=== PATIENT | male | born 1985 | race Caucasian/White ===

== ENCOUNTER 2022-10-07 07:31 | Emergency (ER) | payer OTHER, MEDICAID, SELFPAY ==
[2022-10-07] VITALS (8 sets, daily range): BP systolic 134–171; BP diastolic 76–85; PULSE 63–86; RESP 14–21; TEMP 36.7–36.8; O2SAT 95–99; BMI 31.7
--- NOTE | 2022-10-07 07:43 | ED.GENADULT ---
HPI - General Adult General Chief complaint: Shortness of Breath/Dyspnea Stated complaint: diffulity breathing when laying down/aniexty T-3 Time Seen by Provider: 10/07/22 07:36 History of Present Illness HPI narrative: 37-year-old male presenting with shortness of breath. Patient reports several days of intermittent shortness of breath, this is worse when the patient is lying down flat. Patient does have a recent illness approximately 1-2 weeks prior to presentation. Patient also is actively quitting smoking, last smoking was approximately 2-3 weeks prior to presentation. No measured fevers. No productive cough. No chest pain. Patient does report being woken from sleep several times a night with shortness of breath. Patient reports this triggers his anxiety. Related Data Allergies Allergy/AdvReac Type Severity Reaction Status Date / Time No Known Drug Allergies Allergy Verified 10/07/22 07:44 Patient History Social History Smoking Status: Former smoker Exam Narrative Exam Narrative: Vitals reviewed. Nursing note reviewed Constitutional: interactive HENT: Moist mucous membranes EYES: No scleral icterus NECK: no masses CV: Well perfused peripherally, no cyanosis present PULM: Unlabored respirations, symmetric chest rise ABD: Non-distended MS: No gross deformities, no asymmetric edema noted SKIN: Warm and dry. PSYCH: Appropriate affect NEURO: Follows simple commands, moves extremities, interactive with exam Initial Vital Signs Initial Vital Signs: Vital Signs Pulse Rate 80 10/07/22 07:38 Pulse Oximetry 98 10/07/22 07:38 Course Orders Ordered: ED Orders 10/07/22 07:44 CXR [XR chest 1V] Stat 10/07/22 08:00 CBC Auto Diff [Complete Blood Count AUTO DIFF] Stat CMP [Comprehensive Metabolic Panel] Stat Covid-19 + FLU A/B + RSV - PCR Stat D Dimer Stat Trop I [Troponin I] Stat 10/07/22 08:04 EKG-12 Lead Stat Vital Signs Vital signs: Vital Signs - 8 hr 10/07/22 07:44 10/07/22 07:38 10/07/22 08:00 Temperature 98.1 F Pulse Rate 86 80 74 Respiratory Rate 18 21 Blood Pressure 171/81 H Pulse Oximetry 99 98 Oxygen Delivery Method Room Air Medical Decision Making Lab Data 10/07/22 08:00 10/07/22 08:00 Labs: Lab Results 10/07/22 10/07/22 10/07/22 Range/Units 08:00 08:00 08:00 WBC 4.8 (4.5-11.0) X10^3/uL RBC 5.03 (4.5-5.9) X10^6/uL Hgb 15.2 (13.5-17.5) g/dL Hct 44.6 (41-53) % MCV 88.6 (80-100) fL MCH 30.2 (26-34) PG MCHC 34.1 (30-36) % RDW 13.7 (11.6-14.8) % Plt Count 103 L (150-400) X10^3/uL Neut % (Auto) 70.5 (50-75) % Lymph % (Auto) 19.4 L (25-40) % [place] % (Auto) 8.9 (3-14) % Eos % (Auto) 0.6 L (2-4) % Baso % (Auto) 0.6 (0-2) % Neut # (Auto) 3400 (3250-9647) /uL Lymph # (Auto) 900 L (5399-7268) /uL [place] # (Auto) 400 (0-900) /uL Eos # (Auto) 0 (0-450) /uL Baso # (Auto) 0 (0-100) /uL D-Dimer < 215 (<500) ng/ml Sodium 137 (137-145) mmol/L Potassium 4.1 (3.4-5.1) mmol/L Chloride 102 (98-107) mmol/L Carbon Dioxide 23 (22-32) mmol/L BUN 14 (9-20) mg/dL Creatinine 0.75 (0.66-1.25) mg/dL Estimated GFR > 60 (>60) mL/min BUN/Creatinine Ratio 18.7 (6-22) Glucose 132 H (70-100) mg/dL Calcium 8.2 L (8.4-10.2) mg/dL Total Bilirubin 1.2 (0.2-1.3) mg/dL AST 41 (17-59) IU/L ALT 56 H (<50) IU/L Alkaline Phosphatase 79 (38-126) U/L Troponin I 0.013 (0.01-0.034) ng/mL Total Protein 7.8 (6.3-8.2) g/dL Albumin 4.5 (3.5-5.0) g/dL Globulin 3.3 (1.7-4.1) g/dL Albumin/Globulin Ratio 1.4 (1.0-2.8) SARS-CoV-2 (PCR) (Negative) Influenza A (RT-PCR) (NEGATIVE) Influenza B (RT-PCR) (NEGATIVE) RSV (PCR) (Negative) 10/07/22 Range/Units 08:00 WBC (4.5-11.0) X10^3/uL RBC (4.5-5.9) X10^6/uL Hgb (13.5-17.5) g/dL Hct (41-53) % MCV (80-100) fL MCH (26-34) PG MCHC (30-36) % RDW (11.6-14.8) % Plt Count (150-400) X10^3/uL Neut % (Auto) (50-75) % Lymph % (Auto) (25-40) % [place] % (Auto) (3-14) % Eos % (Auto) (2-4) % Baso % (Auto) (0-2) % Neut # (Auto) (7576-1372) /uL Lymph # (Auto) (1015-7995) /uL [place] # (Auto) (0-900) /uL Eos # (Auto) (0-450) /uL Baso # (Auto) (0-100) /uL D-Dimer (<500) ng/ml Sodium (137-145) mmol/L Potassium (3.4-5.1) mmol/L Chloride (98-107) mmol/L Carbon Dioxide (22-32) mmol/L BUN (9-20) mg/dL Creatinine (0.66-1.25) mg/dL Estimated GFR (>60) mL/min BUN/Creatinine Ratio (6-22) Glucose (70-100) mg/dL Calcium (8.4-10.2) mg/dL Total Bilirubin (0.2-1.3) mg/dL AST (17-59) IU/L ALT (<50) IU/L Alkaline Phosphatase (38-126) U/L Troponin I (0.01-0.034) ng/mL Total Protein (6.3-8.2) g/dL Albumin (3.5-5.0) g/dL Globulin (1.7-4.1) g/dL Albumin/Globulin Ratio (1.0-2.8) SARS-CoV-2 (PCR) Positive H (Negative) Influenza A (RT-PCR) Flu a negative (NEGATIVE) Influenza B (RT-PCR) Flu b negative (NEGATIVE) RSV (PCR) Negative (Negative) MDM Narrative Medical decision making narrative: 37-year-old male presenting with shortness of breath in the setting of recent viral type symptoms starting last week. On presentation, vital signs notable for no hypoxemia or tachycardia. Physical exam on presentation notable for overall well-appearing 37-year-old male who is in no acute distress, reassuring cardiopulmonary and abdominal exam. Initial concern for infectious etiology including viral syndrome, coronavirus pandemic infection, focal bacterial infection, occult sepsis, sleep apnea, asthma exacerbation, myocarditis, pulmonary embolism. EKG obtained on presentation without evidence of significant arrhythmia, no evidence of acute ischemia, and no evidence of pericarditis or myocarditis. Given patient's age and lack of cardiac risk factors, ACS seems unlikely. Broad screening labs were obtained. Chest x-ray without evidence of acute pathology. Labs notable for reassuring CBC and CMP as above. Viral swab notable for positive coronavirus. Discussed findings with patient at bedside. Patient continues to maintain oxygen saturations and is able to ambulate without hypoxemia. Discussed plan for conservative outpatient management and follow up. Discharge Plan Departure Patient Disposition: Home Clinical Impression: COVID-19 Instructions: COVID-19 Referrals: Miscellaneous,MD Marilu [Primary Care Provider] - Stand Alone Forms: Patient Portal/API
--- NOTE | 2022-10-07 07:44 | DI.RAD.S_ITS ---
PROCEDURE: XR CHEST 1V INDICATIONS: sob TECHNIQUE: One view of the chest was acquired. COMPARISON: None. FINDINGS: Surgical changes and devices: None. Lungs and pleura: Lungs are clear. No pleural effusions or pneumothorax. Mediastinum: Mediastinal contours appear normal. Heart size is normal. Bones and chest wall: No suspicious bony lesions. Overlying soft tissues appear unremarkable. IMPRESSION: No acute cardiopulmonary abnormality. Dictated by: Herminia Dillard M.D. on 10/07/2022 at 8:09 Approved by: Herminia Dillard M.D. on 10/07/2022 at 8:09
[2022-10-07 08:14] LABS: Add Manual Diff / Slide Review NO; Basophils Absolute Auto 0 /uL (0-100); Basophils Percent Auto 0.6 % (0-2); Eosinophils Absolute Auto 0 /uL (0-450); Eosinophils Percent Auto 0.6 % (2-4); Hematocrit 44.6 % (41-53); Hemoglobin 15.2 g/dL (13.5-17.5); Lymphocytes Absolute Auto 900 /uL (1100-4500); Lymphocytes Percent Auto 19.4 % (25-40); Mean Corpuscular HGB Conc 34.1 % (30-36); Mean Corpuscular Hemoglobin 30.2 PG (26-34); Mean Corpuscular Volume 88.6 fL (80-100); Monocytes Absolute Auto 400 /uL (0-900); Monocytes Percent Auto 8.9 % (3-14); Neutrophils Absolute Auto 3400 /uL (1500-7000); Neutrophils Percent Auto 70.5 % (50-75); Platelet Count 103 X10^3/uL (150-400); Red Blood Cell Count 5.03 X10^6/uL (4.5-5.9); Red Cell Distribution Width 13.7 % (11.6-14.8); White Blood Cell Count 4.8 X10^3/uL (4.5-11.0)
[2022-10-07 08:22] LABS: Alanine Aminotransferase 56 IU/L (<50); Albumin 4.5 g/dL (3.5-5.0); Albumin Globulin Ratio 1.4 (1.0-2.8); Alkaline Phosphatase 79 U/L (38-126); Aspartate Aminotransferase 41 IU/L (17-59); BUN Creatinine Ratio 18.7 (6-22); Bilirubin Total 1.2 mg/dL (0.2-1.3); Blood Urea Nitrogen 14 mg/dL (9-20); Calcium 8.2 mg/dL (8.4-10.2); Carbon Dioxide 23 mmol/L (22-32); Chloride 102 mmol/L (98-107); Estimated Glomerular Filt Rate > 60 mL/min (>60); Globulin 3.3 g/dL (1.7-4.1); Glucose 132 mg/dL (70-100); Sodium 137 mmol/L (137-145); Total Protein 7.8 g/dL (6.3-8.2)
[2022-10-07 08:23] LABS: D Dimer < 215 ng/ml (<500)
[2022-10-07 08:42] LABS: Potassium 4.1 mmol/L (3.4-5.1)
[2022-10-07 08:46] LABS: Troponin I 0.013 ng/mL (0.01-0.034)
[2022-10-07 08:47] LABS: HEMOLYSIS 110 (0-50)
[2022-10-07 08:49] LABS: Influenza A - CEPHEID Flu A NEGATIVE (NEGATIVE); Influenza B - CEPHEID Flu B NEGATIVE (NEGATIVE); Respiratory Syncytial Virus Negative (Negative)
[2022-10-07 08:50] LABS: COVID-19 CEPHEID 4-PLEX PCR POSITIVE (Negative)
== END 2022-10-07 09:20 | disposition home or self-care (01) ==
PROVIDERS: Emergency Provider Emergency Medicine
DX: U07.1 COVID-19 (principal); R07.9 Chest pain, unspecified
CPT/HCPCS: 0241U; 71045; 80053; 84484; 85025; 85379; 93005; 93010; 99282; 99284

== ENCOUNTER 2023-01-16 16:17 | Emergency (ER) | payer OTHER, MEDICAID, SELFPAY ==
[2023-01-16 17:07] VITALS: BP 180/113; PULSE 106; RESP 16; TEMP 36.8; O2SAT 95; BMI 33.4
[2023-01-16] MEDS: ACETAMINOPHEN 325 MG TABLET 975 MG PO (17:14)
[2023-01-16] MEDS: IBUPROFEN 400 MG TABLET 800 MG PO (17:15)
== END 2023-01-16 17:45 | disposition left against medical advice (07) ==
PROVIDERS: Emergency Provider Emergency Medicine
DX: M54.9 Dorsalgia, unspecified (principal)
CPT/HCPCS: 99283

== ENCOUNTER 2023-01-16 20:25 | Emergency (ER) | payer OTHER, MEDICAID, SELFPAY ==
[2023-01-16 20:36] VITALS: BP 138/76; PULSE 78; RESP 18; TEMP 36.9; O2SAT 98; BMI 33.4
--- NOTE | 2023-01-17 01:02 | ED.BACK ---
HPI - Back Pain/Injury General Chief Complaint: Back Pain/Injury Stated Complaint: Back pain Time Seen by Provider: 01/17/23 00:35 Source: patient History of Present Illness HPI Narrative: Patient is day healthy 37-year-old male history of compression fracture presents today with thoracic back pain. He reports it has been ongoing for the last 4 days it started while he is kind a crack his mom's back. He sudden instant pain midline. Has been ongoing. He denies any numbness tingling or weakness. No changes in bowel or bladder habits. He has been taking Advil without significant relief. It hurts to move. Related Data Previous Rx's Medication Instructions Recorded hydrocodone 5 mg-acetaminophen 325 1 tab PO Q6H PRN pain #10 tabs 01/17/23 mg tablet methocarbamol 750 mg tablet 750 mg PO Q8H PRN muscle spasm #14 01/17/23 tabs Allergies Allergy/AdvReac Type Severity Reaction Status Date / Time No Known Drug Allergies Allergy Verified 01/16/23 20:42 Review of Systems Review of Systems ROS Unobtainable: All systems reviewed & are unremarkable except as noted in HPI and below Patient History Social History Smoking Status: Former smoker Smoking Status: Former smoker Substance Use Type: marijuana Exam Initial Vital Signs Initial Vital Signs: Vital Signs Temperature 98.5 F 01/16/23 20:36 Pulse Rate 78 01/16/23 20:36 Respiratory Rate 18 01/16/23 20:36 Blood Pressure 138/76 01/16/23 20:36 Pulse Oximetry 98 01/16/23 20:36 Oxygen Delivery Method Room Air 01/16/23 20:36 GENERAL: Alert pleasant well-appearing 37-year-old male called up on side CARDIOVASCULAR: peripheral pulses in tact, cap refill <2 sec RESPIRATORY: No respiratory distress, speaks in full sentences without difficulty BACK: Midline pain around T11-T12 and lumbar junction. No paraspinal muscle tenderness no spasm appreciated pain is reproducible palpation EXTREMITIES: Normal range of motion, no clubbing or edema. Neurovascularly intact NEUROLOGICAL: Cranial nerves II through XII grossly intact. Normal gait and speech. SKIN: Warm, dry, no petechiae, no rashes or lesions. Course Orders Ordered: ED Orders 01/17/23 01:09 XR thoracic spine 3V Stat Discontinued Medications Hydrocodone Bitart/Acetaminophen (Hydrocodone/Acet 5/325 Prepack) 1 bottle MISC SEEINSTR ONE Stop: 01/17/23 01:10 Last Admin: 01/17/23 02:15 Dose: 1 bottle Documented By: SINCERE Vital Signs Vital signs: Vital Signs - 8 hr 01/17/23 02:15 Pulse Rate 78 Respiratory Rate 16 Pulse Oximetry 98 Oxygen Delivery Method Room Air MDM - Back Pain/Injury Imaging Data Extremity x-ray #1: Radiologist's Impression: PROCEDURE:? XR THORACIC SPINE 3V ? INDICATIONS:? T11/12 pain ? TECHNIQUE:? 3 views of the thoracic spine were acquired.? ? COMPARISON:? [facility], MR, L-SPINE WITHOUT CONTRAST, 09/28/2014, 16:39.? [facility] [place], CR, SPINE THORACOLUMBAR 2VW, 10/27/2014, 10:58.? [facility] [place], CR, SPINE THORACOLUMBAR 2VW, 11/28/2014, 11:10. ? FINDINGS:? ? Bones:? Several levels of anterior wedge deformity can be seen, including involving the T5, T6, T9, T10, and T11 levels.? No brie acute features are seen.? Remote T12 and L1 anterior wedge deformities are seen, which are stable compared to 2015. ? No suspicious bony lesions.? 12 pairs of ribs are noted, and appear intact where visualized.? ? Soft tissues:? No paravertebral stripe thickening.? ? ? IMPRESSION:? Several levels of mild anterior wedge deformity can be seen, without brie, acute features. ? If it would be helpful for clinical management decision making in this patient with this given history, please consider a dedicated thoracic spine CT for further evaluation.? ? Dictated by: Fadi García M.D. on 01/17/2023 at 0:28 ? ? [facility] Narrative Medical decision making narrative: Patient is a 37-year-old male with prior back injury presenting today with mid line tenderness after another back injury. He is no focal deficits no changes in bowel or bladder habits no concern for cauda equina at this time. X-ray shows old wedge fractures but not acute fractures. Possible ligamentous tear or partial tear. He is quite pinpoint midline. He has been taking NSAIDs at home without relief. Increase Cymbalta give him Willards and follow-up. May require outpatient MRI but does not need an emergent MRI today. Discharge Plan Departure Patient Disposition: Home Clinical Impression: Back pain Instructions: DI for Back Strain or Sprain Activity Restrictions/Additional Instructions: *You have been diagnosed with back pain *What to do: At this time increase activity as tolerated, no heavy lifting no strenuous activity recommend some light activity. *Continue to take medications as directed --> SENT TO [facility] Motrin/ibuprofen 600 mg every 6 hours if needed for yble-ef-msrgdzqd pain Willards 1 tablet every 6 hours if needed for severe pain Methocarbamol 750 mg every 8 hours if needed for muscle spasm this can cause dizziness and sleepiness *Follow up with your primary care provider in 2-3 days or call [phone] *Return to ER if you should have increasing weakness in legs changes in bowel or bladder or any new, worsening or concerning symptoms CONTROLLED SUBSTANCE DISCHARGE (Narcotoic/benzodiazepine/Flexeril/Phenergan) 1. You have been prescribed narcotic medications, it does have acetaminophen/Tylenol/paracetamol in it, DO NOT TAKE MORE THAN 4,00mg in 24 hours of Tylenol. TRAMADOL DOES NOT CONTAIN TYLENOL 2. Please understand that we cannot provide further refills of narcotics, benzodiazepines or controlled substances through the ED and her pain management will need to be through your provider. 3. While on these medications you cannot drive or operate heavy machinery. 4. You cannot sign legal documents or perform any duties such as this. 5. As long as you're taking opiate pain medications he should also be taking a stool softener such as Colace, Dulcolax, MiraLAX or prune juice, to help avoid constipation. Prescriptions: New hydrocodone-acetaminophen 5-325 mg tablet 1 tab PO Q6H PRN (Reason: pain) Qty: 10 0RF methocarbamol 750 mg tablet 750 mg PO Q8H PRN (Reason: muscle spasm) Qty: 14 0RF Referrals: Miscellaneous,Doctor, [Primary Care Provider] - Stand Alone Forms: Patient Portal/API
--- NOTE | 2023-01-17 01:09 | DI.RAD.S_ITS ---
PROCEDURE: XR THORACIC SPINE 3V INDICATIONS: T11/12 pain TECHNIQUE: 3 views of the thoracic spine were acquired. COMPARISON: [facility], MR, L-SPINE WITHOUT CONTRAST, 09/28/2014, 16:39. [facility] [place], CR, SPINE THORACOLUMBAR 2VW, 10/27/2014, 10:58. [facility] [place], CR, SPINE THORACOLUMBAR 2VW, 11/28/2014, 11:10. FINDINGS: Bones: Several levels of anterior wedge deformity can be seen, including involving the T5, T6, T9, T10, and T11 levels. No brie acute features are seen. Remote T12 and L1 anterior wedge deformities are seen, which are stable compared to 2015. No suspicious bony lesions. 12 pairs of ribs are noted, and appear intact where visualized. Soft tissues: No paravertebral stripe thickening. IMPRESSION: Several levels of mild anterior wedge deformity can be seen, without brie, acute features. If it would be helpful for clinical management decision making in this patient with this given history, please consider a dedicated thoracic spine CT for further evaluation. Dictated by: Fadi García M.D. on 01/17/2023 at 0:28 Approved by: Fadi García M.D. on 01/17/2023 at 0:32
[2023-01-17 02:15] VITALS: PULSE 78; RESP 16; O2SAT 98
[2023-01-17] MEDS: HYDROCODONE/ACET 5/325 PREPACK 1 BOTTLE MISC (02:15)
== END 2023-01-17 02:16 | disposition home or self-care (01) ==
PROVIDERS: Emergency Provider Emergency Medicine
DX: M54.6 Pain in thoracic spine (principal); M54.9 Dorsalgia, unspecified
CPT/HCPCS: 72072; 99281; 99283

== ENCOUNTER 2023-05-13 11:30 | Outpatient (RCR) | payer OTHER, MEDICAID, SELFPAY ==
--- NOTE | 2023-03-18 18:31 | PT.OIE ---
Addendum entered and electronically signed by Mercedes Borges PT 03/19/23 08:11: PT direct supervision and direction to PT student. Original Note: Current Diagnoses Collapsed vertebra, not elsewhere classified, site unspecified, initial encounter for fracture (03/18/23) Cervicalgia (03/18/23) Low back pain, unspecified (03/18/23) Pain in thoracic spine (03/18/23) Difficulty in walking, not elsewhere classified (03/18/23) Abnormal posture (03/18/23) Weakness (03/18/23) Past Medical History (Last Updated 02/12/23 @ 22:07 by Jemma Lucia) Allergies Anxiety Asthma Chicken pox Chronic back pain Depression Fracture Headache Shoulder pain Sleep apnea Past Surgical History (Last Updated 02/12/23 @ 22:07 by Jemma Lucia) History of tonsillectomy Visit Care Team Role Provider Type Kenia Jiang DO Attending Provider Physician Family Provider Primary Care Provider Referring Provider Specialty: Medical Address: [address] [place] [address], [facility] [address], [place], [facility] Email: [email or web address] Physical Therapy Initial Evaluation PT-OP-A Visit Information Start: 03/12/23 18:04 Freq: Status: Active Protocol: Document 03/18/23 10:38 (Rec: 03/18/23 13:34 [id number]) Out-Patient Physical Therapy Visit Information Visit Information Visit Type Initial Evaluation Visit Start Time 10:45 Visit Stop Time 11:32 Total Visit Minutes 47 Visit Number 1 Number of PERSONAL INJURY LITIGATION PARALEGAL Visits 0 PT-OP-B Current Condition Start: 03/12/23 18:04 Freq: Status: Active Protocol: Document 03/18/23 10:38 (Rec: 03/18/23 13:34 [id number]) Current Condition History of Current Condition History of Current Condition He broke his back about 10 yrs ago, slipped getting out of shower that resulted in a compression fx. He had back problems prior to the accident . He would try to work out when he felt better over the year but would then hurt himself. Then repeat the cycle over the years. So he gave up for a few years and did nothing. He got depressed trying to get moving again and has been in a hole of depression. About a month a go or so he thinks he may have slipped a disk, He is not really sure. It knocked the wind out him and he had 2 weeks of excruciating pain. He couldnt sleep, it was unbearable. He was trying to lift his mom to crack her back and in that motion he hurt his own back. 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 Following lifiting his mom he went to the hospital where he was given vicadin at the ER and some Ibproufen. He has been taking it off and on. He has been trying to get out and walk about 10-15min a day . He does have posture issues and some neck pain. When he tries to mow the lawn he lasts about 30 min and then has to wait another day to do the other side. He gets an ache in LB after dishes and mowing lawn, it feels like hes being poked. It takes about 10-15min for it to go away. He has been sleeping in a recliner w/ pillow support or a couch until recently. He has been recently sleeping in a bed and that has been much better. He does get discomoft when he turns or twists to change positions; the motion causes a zap when sleeping in his LB . HE wants to get moving and wants to start feeling better. Treatment Goals Patient/Caregiver Goals nephews is playing football and wants to be able to play w / him (11 yrs). 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 mow the entire lawn. get healthy and stay healthy. PT-OP-C Subjective Start: 03/12/23 18:04 Freq: Status: Active Protocol: Document 03/18/23 10:38 (Rec: 03/18/23 17:59 [id number]) Patient Questionnaires Oswestry Low Back Index Oswestry Score 38% PT-OP-G Mobility & Gait Start: 03/12/23 18:04 Freq: Status: Active Protocol: Document 03/18/23 10:38 (Rec: 03/18/23 18:29 [id number]) OP Gait Assessment Comments Gait Comments dec toe off bilaterally. inc eversion bilatearlly when stepping. lateral trunk lean w / wt bearing bilaterally. compensated trendelenberg. no rotation of pelvis. hard Heel strike. PT-OP-J Posture/Palpation/Skin Start: 03/12/23 18:04 Freq: Status: Active Protocol: Document 03/18/23 10:38 (Rec: 03/18/23 13:34 [id number]) Posture Evaluation [facility] Postural Classification System Lumbar Protective Mechanism Left AP 1 Lumbar Protective Mechanism Right AP 2 Lumbar Protective Mechanism Left PA 1 Lumbar Protective Mechanism Right PA 2 Comments Posture Comments stiff. flat thoracic, kyphotic cervical, L shoulder is more elevated and anterior rotated than R. L pelvis sits higher than R, L trochanter sits slightly higher than R. PT-OP-K Range of Motion Start: 03/12/23 18:04 Freq: Status: Active Protocol: Document 03/18/23 10:38 (Rec: 03/18/23 13:34 [id number]) Cervical Spine Range of Motion Cervical Spine Active Testing Position Sitting ROM Limitations Pain Comments pain W/ all planes of movement and limitation w/ all. Lumbar Spine Range of Motion Lumbar Spine Active Testing Position Sitting ROM Limitations Pain Comments 25% rotation bilaterally. 25% L & R sidebend. when pelvis stablized 5% flexion . ext 5%. pain w/ all movements in LB region. PT-OP-M Strength Start: 03/12/23 18:04 Freq: Status: Active Protocol: Document 03/18/23 10:38 (Rec: 03/18/23 13:34 [id number]) Hip Strength Hip Manual Muscle Testing Left Flexion (L2) 4- Good- Extension (S1) 3 Fair Abduction 3+ Fair+ External Rotation 4- Good- Internal Rotation 3+ Fair+ Comments Int done in neutral, discomfort w/ pressure. Right Flexion (L2) 4- Good- Extension (S1) 3 Fair Abduction 3+ Fair+ External Rotation 4+ Good+ Internal Rotation 4- Good- Comments Int done in neutral, discomfort w/ pressure. Knee Strength Knee Manual Muscle Testing Left Flexion (S2) 4- Good- Extension (L3) 4- Good- Right Flexion (S2) 4- Good- Extension (L3) 4 Good Ankle/Foot Strength Ankle and Foot Manual Muscle Testing Left Dorsiflexion (L4) 5 Normal Right Dorsiflexion (L4) 5 Normal PT-OP-T Assessment and Plan Start: 03/12/23 18:04 Freq: Status: Active Protocol: Document 03/18/23 10:38 (Rec: 03/18/23 13:34 [id number]) Physical Therapy Assessment Rehab Potential Rehabilitation Potential Good Evaluation Complexity Number of Personal Factors/Comorbidities 3 or More Number of Body Systems Impaired 4 or More Clinical Presentation at Evaluation Evolving Impairments Impairments Activity Tolerance,Balance, Coordination,Functional Activities,Functional Mobility ,Gait,Pain,Posture,ROM,Soft Tissue Mobility,Strength Goals Movement Short Term Goal (STG) be able to go on his 15min walk w/ no decreased pain greater than 2/10 STG Duration 05/10/23 Wood Technologist Goal (LTG) be able to play w/ his nephew w/out inc pain greater than 2/ 10 LTG Duration 06/10/23 strength Short Term Goal (STG) increase all MMT by one full grade to show improved strength in LEs. STG Duration 05/10/23 Shelter Goal (LTG) be able to lift 10# w/ proper mechanics and pain no greater than 2/10 so that pt can complete functional tasks w/ ease. LTG Duration 06/10/23 ROM Impairment thoracolumbar roation 25% bilaterally Short Term Goal (STG) increase thoracolumbar rotation to at least 50%(45deg ) bilaterally for improved functional ability Shelter Goal (LTG) Be able to turn his head bilaterally w/ pain no greater than 2/10 so that he can interact w/ his environment w/ ease such as driving. LTG Duration 06/10/23 Assessment Summary Assessment pt presents w/ persistant LB, thoracic and neck pain w/ history of major fractures 10 years ago. pt overall is uncomfortable with all movements. He is motivated to get moving more so that he can interact w/ his family more and play w/ his nephew. He also wants to be able to go throughout his day w/out constant discomfort. He does have weakness in his LEs bilaterally, his L being weaker than his R for all MMT. Internal hip rotation MMT was done in the neutral position bilaterally, active testing position caused pain bilaterlly. His ROM of his trunk is limited in all planes of movement, w/ increased discomfort on his L side in all planes movement. Pt would benefit from physical therapy to improve his strength so that he can move throughout his day with ease and continue to improve upon his quality of life. Physical Therapy Plan Frequency and Duration Frequency of Treatment 2x/Week Duration of treatment (weeks) 12 Plan of Care Start Date 03/18/23 Plan of Care End Date 06/10/23 Therapeutic Interventions Therapeutic Interventions Balance Training,Coordination Training,Gait Training,Home Exercise Program,Joint Mobilizations,Manual Therapy, Neuromuscular Re-education, Patient/Caregiver Education, Self-Care/Home Management,Soft Tissue Mobilization,Taping, Therapeutic Activities, Therapeutic Exercises Modalities Biofeedback,Cold Pack/Ice Massage,Electric Stimulation, Hot Packs,Infrared Therapy, Ultrasound Next Visit Focus/Plan Next Note Type Treatment Note Next Visit Plan HEP: challenge balance and core strength. SLS, balance board. sit to stand mechanics. wall postures. seated SNAGS for neck rotation. bridges, clamshells, abductors. Lateral side steps. manual: pelvis, hip mobilizations
--- NOTE | 2023-03-18 18:31 | PT.OPPOC ---
Physical, Occupational & Speech Therapy At [facility] Current Diagnoses Collapsed vertebra, not elsewhere classified, site unspecified, initial encounter for fracture (03/18/23) Cervicalgia (03/18/23) Low back pain, unspecified (03/18/23) Pain in thoracic spine (03/18/23) Difficulty in walking, not elsewhere classified (03/18/23) Abnormal posture (03/18/23) Weakness (03/18/23) Visit Care Team Role Provider Type Kenia Jiang DO Attending Provider Physician Family Provider Primary Care Provider Referring Provider Specialty: Medical Address: [address] [place] [address], [address], [place], [address] Email: [email or web address] Plan Of Care PT-OP-T Assessment and Plan Start: 03/12/23 18:04 Freq: Status: Active Protocol: Document 03/18/23 10:38 (Rec: 03/18/23 13:34 [id number]) Physical Therapy Assessment Rehab Potential Rehabilitation Potential Good Evaluation Complexity Number of Personal Factors/Comorbidities 3 or More Number of Body Systems Impaired 4 or More Clinical Presentation at Evaluation Evolving Impairments Impairments Activity Tolerance,Balance, Coordination,Functional Activities,Functional Mobility ,Gait,Pain,Posture,ROM,Soft Tissue Mobility,Strength Goals Movement Short Term Goal (STG) be able to go on his 15min walk w/ no decreased pain greater than 2/10 STG Duration 05/10/23 [facility] Goal (LTG) be able to play w/ his nephew w/out inc pain greater than 2/ 10 LTG Duration 06/10/23 strength Short Term Goal (STG) increase all MMT by one full grade to show improved strength in LEs. STG Duration 05/10/23 [facility] Goal (LTG) be able to lift 10# w/ proper mechanics and pain no greater than 2/10 so that pt can complete functional tasks w/ ease. LTG Duration 06/10/23 ROM Impairment thoracolumbar roation 25% bilaterally Short Term Goal (STG) increase thoracolumbar rotation to at least 50%(45deg ) bilaterally for improved functional ability [facility] Goal (LTG) Be able to turn his head bilaterally w/ pain no greater than 2/10 so that he can interact w/ his environment w/ ease such as driving. LTG Duration 06/10/23 Assessment Summary Assessment pt presents w/ persistant LB, thoracic and neck pain w/ history of major fractures 10 years ago. pt overall is uncomfortable with all movements. He is motivated to get moving more so that he can interact w/ his family more and play w/ his nephew. He also wants to be able to go throughout his day w/out constant discomfort. He does have weakness in his LEs bilaterally, his L being weaker than his R for all MMT. Internal hip rotation MMT was done in the neutral position bilaterally, active testing position caused pain bilaterlly. His ROM of his trunk is limited in all planes of movement, w/ increased discomfort on his L side in all planes movement. Pt would benefit from physical therapy to improve his strength so that he can move throughout his day with ease and continue to improve upon his quality of life. Physical Therapy Plan Frequency and Duration Frequency of Treatment 2x/Week Duration of treatment (weeks) 12 Plan of Care Start Date 03/18/23 Plan of Care End Date 06/10/23 Therapeutic Interventions Therapeutic Interventions Balance Training,Coordination Training,Gait Training,Home Exercise Program,Joint Mobilizations,Manual Therapy, Neuromuscular Re-education, Patient/Caregiver Education, Self-Care/Home Management,Soft Tissue Mobilization,Taping, Therapeutic Activities, Therapeutic Exercises Modalities Biofeedback,Cold Pack/Ice Massage,Electric Stimulation, Hot Packs,Infrared Therapy, Ultrasound Next Visit Focus/Plan Next Note Type Treatment Note Next Visit Plan HEP: challenge balance and core strength. SLS, balance board. sit to stand mechanics. wall postures. seated SNAGS for neck rotation. bridges, clamshells, abductors. Lateral side steps. manual: pelvis, hip mobilizations Plan of Care Dates Plan of Care Start Date 03/18/23 Plan of Care End Date 06/10/23 Electronically Signed by: Mercedes Borges, PT 03/18/23 0632 If you are in agreement with this Plan of Care, please return a signed and dated copy. I have reviewed this Plan of Care and certify that the skilled therapy services above are required to meet the patient?s needs. Physician Signature Date Printed Name and Credentials Clinical Instructor Signature Printed Name and Credentials
--- NOTE | 2023-03-27 11:34 | PT.OTN ---
Current Diagnoses Collapsed vertebra, not elsewhere classified, site unspecified, initial encounter for fracture (03/27/23) Cervicalgia (03/27/23) Low back pain, unspecified (03/27/23) Pain in thoracic spine (03/27/23) Difficulty in walking, not elsewhere classified (03/27/23) Abnormal posture (03/27/23) Weakness (03/27/23) Physical Therapy Treatment Note PT-OP-A Visit Information Start: 03/12/23 18:04 Freq: Status: Active Protocol: Document 03/27/23 10:27 NBM (Rec: 03/27/23 11:34 NBM [id number]) Out-Patient Physical Therapy Visit Information Visit Information Visit Type Initial Evaluation Visit Start Time 10:30 Visit Stop Time 11:15 Total Visit Minutes 40 Visit Number 2 Number of BOW STRING MAKER Visits 1 PT-OP-B Current Condition Start: 03/12/23 18:04 Freq: Status: Active Protocol: Document 03/18/23 10:38 (Rec: 03/18/23 13:34 [id number]) Current Condition History of Current Condition History of Current Condition He broke his back about 10 yrs ago, slipped getting out of shower that resulted in a compression fx. He had back problems prior to the accident . He would try to work out when he felt better over the year but would then hurt himself. Then repeat the cycle over the years. So he gave up for a few years and did nothing. He got depressed trying to get moving again and has been in a hole of depression. About a month a go or so he thinks he may have slipped a disk, He is not really sure. It knocked the wind out him and he had 2 weeks of excruciating pain. He couldnt sleep, it was unbearable. He was trying to lift his mom to crack her back and in that motion he hurt his own back. 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 Following lifiting his mom he went to the hospital where he was given vicadin at the ER and some Ibproufen. He has been taking it off and on. He has been trying to get out and walk about 10-15min a day . He does have posture issues and some neck pain. When he tries to mow the lawn he lasts about 30 min and then has to wait another day to do the other side. He gets an ache in LB after dishes and mowing lawn, it feels like hes being poked. It takes about 10-15min for it to go away. He has been sleeping in a recliner w/ pillow support or a couch until recently. He has been recently sleeping in a bed and that has been much better. He does get discomoft when he turns or twists to change positions; the motion causes a zap when sleeping in his LB . HE wants to get moving and wants to start feeling better. Treatment Goals Patient/Caregiver Goals nephews is playing football and wants to be able to play w / him (11 yrs). 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 mow the entire lawn. get healthy and stay healthy. PT-OP-C Subjective Start: 03/12/23 18:04 Freq: Status: Active Protocol: Document 03/27/23 10:27 [facility] (Rec: 03/27/23 11:34 [facility] [id number]) OP-PT Subjective Patient Comments Patient Comments Blas reports he felt fine after last visit and is motivated to play football with 11 yo nephew. He tries to be mindful of posture and stretching, and his back feels better if he walks for about ten minutes. He uses either ice or heat for his back pain. PT-OP-G Mobility & Gait Start: 03/12/23 18:04 Freq: Status: Active Protocol: Document 03/18/23 10:38 (Rec: 03/18/23 18:29 [id number]) OP Gait Assessment Comments Gait Comments dec toe off bilaterally. inc eversion bilatearlly when stepping. lateral trunk lean w / wt bearing bilaterally. compensated trendelenberg. no rotation of pelvis. hard Heel strike. PT-OP-J Posture/Palpation/Skin Start: 03/12/23 18:04 Freq: Status: Active Protocol: Document 03/18/23 10:38 (Rec: 03/18/23 13:34 [id number]) Posture Evaluation Arthur Postural Classification System Lumbar Protective Mechanism Left AP 1 Lumbar Protective Mechanism Right AP 2 Lumbar Protective Mechanism Left PA 1 Lumbar Protective Mechanism Right PA 2 Comments Posture Comments stiff. flat thoracic, kyphotic cervical, L shoulder is more elevated and anterior rotated than R. L pelvis sits higher than R, L trochanter sits slightly higher than R. PT-OP-K Range of Motion Start: 03/12/23 18:04 Freq: Status: Active Protocol: Document 03/18/23 10:38 (Rec: 03/18/23 13:34 [id number]) Cervical Spine Range of Motion Cervical Spine Active Testing Position Sitting ROM Limitations Pain Comments pain W/ all planes of movement and limitation w/ all. Lumbar Spine Range of Motion Lumbar Spine Active Testing Position Sitting ROM Limitations Pain Comments 25% rotation bilaterally. 25% L & R sidebend. when pelvis stablized 5% flexion . ext 5%. pain w/ all movements in LB region. PT-OP-M Strength Start: 03/12/23 18:04 Freq: Status: Active Protocol: Document 03/18/23 10:38 (Rec: 03/18/23 13:34 [id number]) Hip Strength Hip Manual Muscle Testing Left Flexion (L2) 4- Good- Extension (S1) 3 Fair Abduction 3+ Fair+ External Rotation 4- Good- Internal Rotation 3+ Fair+ Comments Int done in neutral, discomfort w/ pressure. Right Flexion (L2) 4- Good- Extension (S1) 3 Fair Abduction 3+ Fair+ External Rotation 4+ Good+ Internal Rotation 4- Good- Comments Int done in neutral, discomfort w/ pressure. Knee Strength Knee Manual Muscle Testing Left Flexion (S2) 4- Good- Extension (L3) 4- Good- Right Flexion (S2) 4- Good- Extension (L3) 4 Good Ankle/Foot Strength Ankle and Foot Manual Muscle Testing Left Dorsiflexion (L4) 5 Normal Right Dorsiflexion (L4) 5 Normal PT-OP-Q Treatments Start: 03/12/23 18:04 Freq: Status: Active Protocol: Document 03/27/23 10:27 NBM (Rec: 03/27/23 11:34 NB [id number]) Therapeutic Exercises Supine Exercises chin tuck Supine Exercise Name next session LTR Supine Exercise Name HEP Side bilateral Equipment Used w/ and w/o 65cm physioball Reps/Minutes x10 Comments vc gentle, pain-free range SNAGS Supine Exercise Name next session Core Supine Exercise Name 1. TrA > TrA w/ PPT>BKFO (HEP) Equipment Used LE bolster, self-monitoring TrA medial to ASIS Reps/Minutes 10 x 2 breathcycles (~5SH) Comments vc for no breathholding, overactivation Sitting Exercises STS Sitting Exercise Name Sit to Stand - next session Standing Exercises Wall posture Equipment Used pillow behind head Reps/Minutes 10 x 5SH Therapeutic Activity Therapeutic Activity Bending mechanics Name next session Self-Care/Home Management Treatment Education Patient Education Body Mechanics,Home Exercise Program,Pain Management, Posture Other Education Pt educated on core anatomy and relationship with diaphragm and importance of not breathholding. Pt instructed on self-monitoring TrA activation medial to ASIS in hooklying. PT-OP-R Modalities Start: 03/12/23 18:04 Freq: Status: Active Protocol: Document 03/27/23 10:27 NBM (Rec: 03/27/23 11:34 [facility] [id number]) Hot Pack/Cold Pack Treatment Cold Pack Location lumbar Patient Position Hooklying Treatment Duration (minutes) 10 Patient Tolerance Good Comments bolster under LEs PT-OP-T Assessment and Plan Start: 03/12/23 18:04 Freq: Status: Active Protocol: Document 03/27/23 10:27 NBM (Rec: 03/27/23 11:34 [facility] [id number]) Physical Therapy Assessment Impairments Impairments Activity Tolerance,Balance, Coordination,Functional Activities,Functional Mobility ,Gait,Pain,Posture,ROM,Soft Tissue Mobility,Strength Goals Movement Short Term Goal (STG) be able to go on his 15min walk w/ no decreased pain greater than 2/10 STG Duration 05/10/23 Glass Silverer Goal (LTG) be able to play w/ his nephew w/out inc pain greater than 2/ 10 LTG Duration 06/10/23 strength Short Term Goal (STG) increase all MMT by one full grade to show improved strength in LEs. STG Duration 05/10/23 [place] Silverer Goal (LTG) be able to lift 10# w/ proper mechanics and pain no greater than 2/10 so that pt can complete functional tasks w/ ease. LTG Duration 06/10/23 ROM Impairment thoracolumbar roation 25% bilaterally Short Term Goal (STG) increase thoracolumbar rotation to at least 50%(45deg ) bilaterally for improved functional ability Glass Silverer Goal (LTG) Be able to turn his head bilaterally w/ pain no greater than 2/10 so that he can interact w/ his environment w/ ease such as driving. LTG Duration 06/10/23 Assessment Summary Assessment Blas is motivated to participate in PT. Treatment focus on core stability and postural and core education. Blas is educated on core anatomy and relationship with diaphragm and importance of not breathholding. He requires cues for breathholding and pain-free ROM, and self- awareness improves by end of session w/ cueing and repetition. No carryover w/ upright posture after walldrill beginning of treatment session as he requires cues for upright posture walking out end of session. He requires cues for chin retraction instead of cervical extension with posture. Pt instructed on self -monitoring TrA activation medial to ASIS in hooklying. Added to HEP: TrA w/BKFO, LTR, DKTC, and wall posture drill - HO given. Physical Therapy Plan Frequency and Duration Frequency of Treatment 2x/Week Duration of treatment (weeks) 12 Plan of Care Start Date 03/18/23 Plan of Care End Date 06/10/23 Therapeutic Interventions Therapeutic Interventions Balance Training,Coordination Training,Gait Training,Home Exercise Program,Joint Mobilizations,Manual Therapy, Neuromuscular Re-education, Patient/Caregiver Education, Self-Care/Home Management,Soft Tissue Mobilization,Taping, Therapeutic Activities, Therapeutic Exercises Modalities Biofeedback,Cold Pack/Ice Massage,Electric Stimulation, Hot Packs,Infrared Therapy, Ultrasound Next Visit Focus/Plan Next Note Type Treatment Note Next Visit Plan HEP: challenge balance and core strength. SLS, balance board. sit to stand mechanics. wall postures. seated SNAGS for neck rotation. bridges, clamshells, abductors. Lateral side steps. manual: pelvis, hip mobilizations
--- NOTE | 2023-04-14 11:38 | PT-OP ANOTE ---
Pt called re: no show and mom answered as pt does not have a phone, but only a texting kalyani. She notes he texted this ride was unable to get him and she tried to call but couldn't get through the line. She asks to reschedule next appt and was transferred to the front elevator operator.
--- NOTE | 2023-04-21 11:55 | PT-OP ANOTE ---
Spoke w/ pt's mom regarding missed appt who advised she had just received a text from him that he was unable to find transportation for his PT appt. Advised that he can text message the front desk representative through the same chat that he confirmed the appointment through. Mom explains they though there was a service for insurance to provide transportation for appts but it doesn't seem to be available any more. She is only off on Wednesdays, except for this week it is , so pt is rescheduled for 12:45p w/ [employer] SUPERVISOR. Pt will reschedule following appts with [facility] for Wednesdays.
--- NOTE | 2023-04-23 12:49 | PT.OTN ---
Current Diagnoses Collapsed vertebra, not elsewhere classified, site unspecified, initial encounter for fracture (04/23/23) Cervicalgia (04/23/23) Low back pain, unspecified (04/23/23) Pain in thoracic spine (04/23/23) Difficulty in walking, not elsewhere classified (04/23/23) Abnormal posture (04/23/23) Weakness (04/23/23) Physical Therapy Treatment Note PT-OP-A Visit Information Start: 03/12/23 18:04 Freq: Status: Active Protocol: Document 04/23/23 12:04 SP (Rec: 04/23/23 13:04 SP [id number]) Out-Patient Physical Therapy Visit Information Visit Information Visit Type Treatment Note Visit Start Time 12:04 Visit Stop Time 12:49 Total Visit Minutes 45 Visit Number 3 Number of AIX SYSTEM ADMINISTRATOR Visits 2 PT-OP-B Current Condition Start: 03/12/23 18:04 Freq: Status: Active Protocol: Document 03/18/23 10:38 (Rec: 03/18/23 13:34 [id number]) Current Condition History of Current Condition History of Current Condition He broke his back about 10 yrs ago, slipped getting out of shower that resulted in a compression fx. He had back problems prior to the accident . He would try to work out when he felt better over the year but would then hurt himself. Then repeat the cycle over the years. So he gave up for a few years and did nothing. He got depressed trying to get moving again and has been in a hole of depression. About a month a go or so he thinks he may have slipped a disk, He is not really sure. It knocked the wind out him and he had 2 weeks of excruciating pain. He couldnt sleep, it was unbearable. He was trying to lift his mom to crack her back and in that motion he hurt his own back. 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 Following lifiting his mom he went to the hospital where he was given vicadin at the ER and some Ibproufen. He has been taking it off and on. He has been trying to get out and walk about 10-15min a day . He does have posture issues and some neck pain. When he tries to mow the lawn he lasts about 30 min and then has to wait another day to do the other side. He gets an ache in LB after dishes and mowing lawn, it feels like hes being poked. It takes about 10-15min for it to go away. He has been sleeping in a recliner w/ pillow support or a couch until recently. He has been recently sleeping in a bed and that has been much better. He does get discomoft when he turns or twists to change positions; the motion causes a zap when sleeping in his LB . HE wants to get moving and wants to start feeling better. Treatment Goals Patient/Caregiver Goals sridevi is playing football and wants to be able to play w / him (13 yrs). 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 mow the entire lawn. get healthy and stay healthy. PT-OP-C Subjective Start: 03/12/23 18:04 Freq: Status: Active Protocol: Document 04/23/23 12:04 SP (Rec: 04/23/23 13:04 SP [id number]) OP-PT Subjective Patient Comments Patient Comments Pt reports tossing football around with LS pain trunk rotating and when wakes up in am worst movements. Compliant with HEP. PT-OP-G Mobility & Gait Start: 03/12/23 18:04 Freq: Status: Active Protocol: Document 03/18/23 10:38 JH (Rec: 03/18/23 18:29 JH [id number]) OP Gait Assessment Comments Gait Comments dec toe off bilaterally. inc eversion bilatearlly when stepping. lateral trunk lean w / wt bearing bilaterally. compensated trendelenberg. no rotation of pelvis. hard Heel strike. PT-OP-J Posture/Palpation/Skin Start: 03/12/23 18:04 Freq: Status: Active Protocol: Document 03/18/23 10:38 JH (Rec: 03/18/23 13:34 JH [id number]) Posture Evaluation Arthur Postural Classification System Lumbar Protective Mechanism Left AP 1 Lumbar Protective Mechanism Right AP 2 Lumbar Protective Mechanism Left PA 1 Lumbar Protective Mechanism Right PA 2 Comments Posture Comments stiff. flat thoracic, kyphotic cervical, L shoulder is more elevated and anterior rotated than R. L pelvis sits higher than R, L trochanter sits slightly higher than R. PT-OP-K Range of Motion Start: 03/12/23 18:04 Freq: Status: Active Protocol: Document 03/18/23 10:38 JH (Rec: 03/18/23 13:34 [id number]) Cervical Spine Range of Motion Cervical Spine Active Testing Position Sitting ROM Limitations Pain Comments pain W/ all planes of movement and limitation w/ all. Lumbar Spine Range of Motion Lumbar Spine Active Testing Position Sitting ROM Limitations Pain Comments 25% rotation bilaterally. 25% L & R sidebend. when pelvis stablized 5% flexion . ext 5%. pain w/ all movements in LB region. PT-OP-M Strength Start: 03/12/23 18:04 Freq: Status: Active Protocol: Document 03/18/23 10:38 JH (Rec: 03/18/23 13:34 [id number]) Hip Strength Hip Manual Muscle Testing Left Flexion (L2) 4- Good- Extension (S1) 3 Fair Abduction 3+ Fair+ External Rotation 4- Good- Internal Rotation 3+ Fair+ Comments Int done in neutral, discomfort w/ pressure. Right Flexion (L2) 4- Good- Extension (S1) 3 Fair Abduction 3+ Fair+ External Rotation 4+ Good+ Internal Rotation 4- Good- Comments Int done in neutral, discomfort w/ pressure. Knee Strength Knee Manual Muscle Testing Left Flexion (S2) 4- Good- Extension (L3) 4- Good- Right Flexion (S2) 4- Good- Extension (L3) 4 Good Ankle/Foot Strength Ankle and Foot Manual Muscle Testing Left Dorsiflexion (L4) 5 Normal Right Dorsiflexion (L4) 5 Normal PT-OP-Q Treatments Start: 03/12/23 18:04 Freq: Status: Active Protocol: Document 04/23/23 12:04 SP (Rec: 04/23/23 13:04 SP [id number]) Therapeutic Exercises Supine Exercises DKTC Supine Exercise Name double knee to chest stretch Side bilateral Reps/Minutes 2 x 30s Comments cued relax back w/ breath chin tuck Supine Exercise Name added to HEP Reps/Minutes 5 SH x10 Comments cued relax shld, neutral pelvis/ knees bent/ft table LTR Supine Exercise Name HEP Side bilateral Equipment Used w/ and w/o 55cm physioball Reps/Minutes 3 reps ROM/TA, 7 reps TA core strength Comments vc gentle, pain-free range- obli Core Supine Exercise Name 1. TrA > TrA w/ PPT>BKFO (HEP) Equipment Used LE foam roller, self- monitoring TrA medial to ASIS Reps/Minutes 10 x 2 breathcycles (~5SH) Comments vc for no breathholding, overactivation Sidelying Exercises open book Sidelying Exercise Name added to HEP Side bilateral Reps/Minutes 3 reps ROM, 2-4 reps breath hold anterior chain stretch Comments cued scapular glide, head turn with arm, 2 breath Sitting Exercises STS Sitting Exercise Name Sit to Stand - added HEP Equipment Used mesh chair, arms across chest - Reps/Minutes 5, 3 reps Comments cued straight posture, hip hinge TA engage initial lift/ last 2 lower Standing Exercises Wall posture Standing Exercise Name arms draped side, last rep slight shld ER Equipment Used small folded towel behind head Reps/Minutes 10 x 5SH Comments cues for form (PPT/TA, cervical retraction) Manual Therapy Treatment Soft Tissue Mobilization pec Comments manual and ed/perform self MWM UE FM, ed helps increase scapular retracted ROM for carryover posture (check improve ROM wall posture). neck Body Location UT, LS Mobilization Type Cross-Friction,Myofascial Release,Strumming,Sustained Pressure,Other Comments MFR UT, LS and sustained pressure FM head nods/turns ( next tx theracane self application); pincer knead SCM ed self massage SCM, improved chin tuck cervical ROM post manual. Encouraged continue home as well to support posture. Neuro Re-Education Treatment Balance Activities hurdles Details next SLS Details next Self-Care/Home Management Treatment Education Patient Education Home Exercise Program,Pain Management,Posture Other Education Ed use pillows side sleeping: btwn BLEs, UEs, under upper ribcage- good feedback response comfortable. Ed/perform MWM pec, SCM for increase scapular ROM Added open book, TA/neutral pelvis STS. PT-OP-R Modalities Start: 03/12/23 18:04 Freq: Status: Active Protocol: Document 03/27/23 10:27 [facility] (Rec: 03/27/23 11:34 [facility] [id number]) Hot Pack/Cold Pack Treatment Cold Pack Location lumbar Patient Position Hooklying Treatment Duration (minutes) 10 Patient Tolerance Good Comments bolster under LEs PT-OP-T Assessment and Plan Start: 03/12/23 18:04 Freq: Status: Active Protocol: Document 04/23/23 12:04 SP (Rec: 04/23/23 13:04 SP [id number]) Physical Therapy Assessment Goals Movement Short Term Goal (STG) be able to go on his 15min walk w/ no decreased pain greater than 2/10 STG Duration 05/10/23 Creative Writing English Professor Goal (LTG) be able to play w/ his nephew w/out inc pain greater than 2/ 10 LTG Duration 06/10/23 strength Short Term Goal (STG) increase all MMT by one full grade to show improved strength in LEs. STG Duration 05/10/23 Creative Writing English Professor Goal (LTG) be able to lift 10# w/ proper mechanics and pain no greater than 2/10 so that pt can complete functional tasks w/ ease. LTG Duration 06/10/23 ROM Impairment thoracolumbar roation 25% bilaterally Short Term Goal (STG) increase thoracolumbar rotation to at least 50%(45deg ) bilaterally for improved functional ability Creative Writing English Professor Goal (LTG) Be able to turn his head bilaterally w/ pain no greater than 2/10 so that he can interact w/ his environment w/ ease such as driving. LTG Duration 06/10/23 Assessment Summary Assessment Pt improved chin tuck CS ext ROM post manual- wow helped my posture end tx. Pt improved TA but muscle quivering during KFO today. Good response open book and side sleep use pillow propping for spinal alignment/comfort. Physical Therapy Plan Frequency and Duration Frequency of Treatment 2x/Week Duration of treatment (weeks) 12 Plan of Care Start Date 03/18/23 Plan of Care End Date 06/10/23 Therapeutic Interventions Therapeutic Interventions Balance Training,Coordination Training,Gait Training,Home Exercise Program,Joint Mobilizations,Manual Therapy, Neuromuscular Re-education, Patient/Caregiver Education, Self-Care/Home Management,Soft Tissue Mobilization,Taping, Therapeutic Activities, Therapeutic Exercises Modalities Biofeedback,Cold Pack/Ice Massage,Electric Stimulation, Hot Packs,Infrared Therapy, Ultrasound Next Visit Focus/Plan Next Note Type Treatment Note Next Visit Plan REcheck: open book, TA STS, wall posture. Future progress throwing ROM for ease LB playing with nephew. POC: HEP: challenge balance and core strength. SLS, balance board. Add seated SNAGS for neck rotation. bridges, clamshells, abductors . Lateral side steps. manual: Neck, pelvis, hip mobilizations
--- NOTE | 2023-04-28 13:39 | PT.OTN ---
Current Diagnoses Collapsed vertebra, not elsewhere classified, site unspecified, initial encounter for fracture (04/28/23) Cervicalgia (04/28/23) Low back pain, unspecified (04/28/23) Pain in thoracic spine (04/28/23) Difficulty in walking, not elsewhere classified (04/28/23) Abnormal posture (04/28/23) Weakness (04/28/23) Physical Therapy Treatment Note PT-OP-A Visit Information Start: 03/12/23 18:04 Freq: Status: Active Protocol: Document 04/28/23 12:47 [facility] (Rec: 04/28/23 13:39 [facility] [id number]) Out-Patient Physical Therapy Visit Information Visit Information Visit Type Treatment Note Visit Start Time 12:47 Visit Stop Time 13:27 Total Visit Minutes 40 Visit Number 4 Number of ELDER COUNSELOR Visits 0 PT-OP-B Current Condition Start: 03/12/23 18:04 Freq: Status: Active Protocol: Document 03/18/23 10:38 (Rec: 03/18/23 13:34 [id number]) Current Condition History of Current Condition History of Current Condition He broke his back about 10 yrs ago, slipped getting out of shower that resulted in a compression fx. He had back problems prior to the accident . He would try to work out when he felt better over the year but would then hurt himself. Then repeat the cycle over the years. So he gave up for a few years and did nothing. He got depressed trying to get moving again and has been in a hole of depression. About a month a go or so he thinks he may have slipped a disk, He is not really sure. It knocked the wind out him and he had 2 weeks of excruciating pain. He couldnt sleep, it was unbearable. He was trying to lift his mom to crack her back and in that motion he hurt his own back. 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 Following lifiting his mom he went to the hospital where he was given vicadin at the ER and some Ibproufen. He has been taking it off and on. He has been trying to get out and walk about 10-15min a day . He does have posture issues and some neck pain. When he tries to mow the lawn he lasts about 30 min and then has to wait another day to do the other side. He gets an ache in LB after dishes and mowing lawn, it feels like hes being poked. It takes about 10-15min for it to go away. He has been sleeping in a recliner w/ pillow support or a couch until recently. He has been recently sleeping in a bed and that has been much better. He does get discomoft when he turns or twists to change positions; the motion causes a zap when sleeping in his LB . HE wants to get moving and wants to start feeling better. Treatment Goals Patient/Caregiver Goals sridevi is playing football and wants to be able to play w / him (13 yrs). 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 mow the entire lawn. get healthy and stay healthy. PT-OP-C Subjective Start: 03/12/23 18:04 Freq: Status: Active Protocol: Document 04/28/23 12:47 [facility] (Rec: 04/28/23 13:39 [facility] [id number]) OP-PT Subjective Patient Comments Patient Comments pt reports compliance w/HEP. Some discomfort w/exercises. Pt reports that a weight was lifted off neck after last session. the wrok done by last therapist really helped Patient Reported Progress Improving PT-OP-G Mobility & Gait Start: 03/12/23 18:04 Freq: Status: Active Protocol: Document 03/18/23 10:38 (Rec: 03/18/23 18:29 [id number]) OP Gait Assessment Comments Gait Comments dec toe off bilaterally. inc eversion bilatearlly when stepping. lateral trunk lean w / wt bearing bilaterally. compensated trendelenberg. no rotation of pelvis. hard Heel strike. PT-OP-J Posture/Palpation/Skin Start: 03/12/23 18:04 Freq: Status: Active Protocol: Document 03/18/23 10:38 JH (Rec: 03/18/23 13:34 [id number]) Posture Evaluation Arthur Postural Classification System Lumbar Protective Mechanism Left AP 1 Lumbar Protective Mechanism Right AP 2 Lumbar Protective Mechanism Left PA 1 Lumbar Protective Mechanism Right PA 2 Comments Posture Comments stiff. flat thoracic, kyphotic cervical, L shoulder is more elevated and anterior rotated than R. L pelvis sits higher than R, L trochanter sits slightly higher than R. PT-OP-K Range of Motion Start: 03/12/23 18:04 Freq: Status: Active Protocol: Document 03/18/23 10:38 (Rec: 03/18/23 13:34 [id number]) Cervical Spine Range of Motion Cervical Spine Active Testing Position Sitting ROM Limitations Pain Comments pain W/ all planes of movement and limitation w/ all. Lumbar Spine Range of Motion Lumbar Spine Active Testing Position Sitting ROM Limitations Pain Comments 25% rotation bilaterally. 25% L & R sidebend. when pelvis stablized 5% flexion . ext 5%. pain w/ all movements in LB region. PT-OP-M Strength Start: 03/12/23 18:04 Freq: Status: Active Protocol: Document 03/18/23 10:38 (Rec: 03/18/23 13:34 [id number]) Hip Strength Hip Manual Muscle Testing Left Flexion (L2) 4- Good- Extension (S1) 3 Fair Abduction 3+ Fair+ External Rotation 4- Good- Internal Rotation 3+ Fair+ Comments Int done in neutral, discomfort w/ pressure. Right Flexion (L2) 4- Good- Extension (S1) 3 Fair Abduction 3+ Fair+ External Rotation 4+ Good+ Internal Rotation 4- Good- Comments Int done in neutral, discomfort w/ pressure. Knee Strength Knee Manual Muscle Testing Left Flexion (S2) 4- Good- Extension (L3) 4- Good- Right Flexion (S2) 4- Good- Extension (L3) 4 Good Ankle/Foot Strength Ankle and Foot Manual Muscle Testing Left Dorsiflexion (L4) 5 Normal Right Dorsiflexion (L4) 5 Normal PT-OP-Q Treatments Start: 03/12/23 18:04 Freq: Status: Active Protocol: Document 04/28/23 12:47 [facility] (Rec: 04/28/23 13:39 [facility] [id number]) Therapeutic Exercises Supine Exercises isometric Supine Exercise Name SL press Side bilateral Reps/Minutes 30 sec ea DKTC Supine Exercise Name double knee to chest stretch Side bilateral Reps/Minutes x 30s Comments pt performs well chin tuck Supine Exercise Name added to HEP Reps/Minutes 5 SH x5 LTR Supine Exercise Name advanced to segmental press down w/max cues Side bilateral Reps/Minutes 12 ea Core Supine Exercise Name 1. TA w/BK 2. TA w/october 3. heel slide Side bilateral Reps/Minutes 1. 5 ea 2. 10 ea 3. 10 ea Comments no cues needed w/BKFO- progressed to october Sidelying Exercises open book Sidelying Exercise Name review HEP Side bilateral Reps/Minutes 6 ea side Comments cues to lead w/trunk rot Sitting Exercises axial elongation Side bilateral Equipment Used lvl 2 band Reps/Minutes 5 sec x10 STS Sitting Exercise Name Sit to Stand - Equipment Used 2nd set lvl 2 around knees Reps/Minutes 2x6 Comments cues for hip hinge and glute squeeze Standing Exercises Wall posture Standing Exercise Name cues for slow roll up segmental w/cues to keep lumbar spine on wall Reps/Minutes 2x20 sec Manual Therapy Treatment Soft Tissue Mobilization back Body Location lumbar and thoracic L>R Mobilization Type Rolling,Sustained Pressure Intensity/Depth Moderate Body Position Sidelying PT-OP-R Modalities Start: 03/12/23 18:04 Freq: Status: Active Protocol: Document 03/27/23 10:27 [facility] (Rec: 03/27/23 11:34 [facility] [id number]) Hot Pack/Cold Pack Treatment Cold Pack Location lumbar Patient Position Hooklying Treatment Duration (minutes) 10 Patient Tolerance Good Comments bolster under LEs PT-OP-T Assessment and Plan Start: 03/12/23 18:04 Freq: Status: Active Protocol: Document 04/28/23 12:47 [facility] (Rec: 04/28/23 13:39 [facility] [id number]) Physical Therapy Assessment Goals Movement Short Term Goal (STG) be able to go on his 15min walk w/ no decreased pain greater than 2/10 STG Duration 05/10/23 It Auditor Goal (LTG) be able to play w/ his nephew w/out inc pain greater than 2/ 10 LTG Duration 06/10/23 strength Short Term Goal (STG) increase all MMT by one full grade to show improved strength in LEs. STG Duration 05/10/23 It Auditor Goal (LTG) be able to lift 10# w/ proper mechanics and pain no greater than 2/10 so that pt can complete functional tasks w/ ease. LTG Duration 06/10/23 ROM Impairment thoracolumbar roation 25% bilaterally Short Term Goal (STG) increase thoracolumbar rotation to at least 50%(45deg ) bilaterally for improved functional ability Jail Goal (LTG) Be able to turn his head bilaterally w/ pain no greater than 2/10 so that he can interact w/ his environment w/ ease such as driving. LTG Duration 06/10/23 Assessment Summary Assessment Pt did well with exercises today and exercises were progressed as able. Manual focus on LB as this is where pt's pain is most at this time as he felt much better w/neck after last session. Physical Therapy Plan Frequency and Duration Frequency of Treatment 2x/Week Duration of treatment (weeks) 12 Plan of Care Start Date 03/18/23 Plan of Care End Date 06/10/23 Next Visit Focus/Plan Next Note Type Treatment Note Next Visit Plan challenge balance, try shuttle balance and tball for core, manaul to improve back pain ( gentle d/t history of spinal fx)
--- NOTE | 2023-05-13 12:19 | PT.OTN ---
Current Diagnoses Collapsed vertebra, not elsewhere classified, site unspecified, initial encounter for fracture (05/13/23) Cervicalgia (05/13/23) Low back pain, unspecified (05/13/23) Pain in thoracic spine (05/13/23) Difficulty in walking, not elsewhere classified (05/13/23) Abnormal posture (05/13/23) Weakness (05/13/23) Physical Therapy Treatment Note PT-OP-A Visit Information Start: 03/12/23 18:04 Freq: Status: Active Protocol: Document 05/13/23 11:43 [facility] (Rec: 05/13/23 12:18 [facility] [id number]) Out-Patient Physical Therapy Visit Information Visit Information Visit Type Treatment Note Visit Start Time 11:37 Visit Stop Time 12:15 Total Visit Minutes 38 Visit Number 5 Number of ENGINE TESTER Visits 0 PT-OP-B Current Condition Start: 03/12/23 18:04 Freq: Status: Active Protocol: Document 03/18/23 10:38 (Rec: 03/18/23 13:34 [id number]) Current Condition History of Current Condition History of Current Condition He broke his back about 10 yrs ago, slipped getting out of shower that resulted in a compression fx. He had back problems prior to the accident . He would try to work out when he felt better over the year but would then hurt himself. Then repeat the cycle over the years. So he gave up for a few years and did nothing. He got depressed trying to get moving again and has been in a hole of depression. About a month a go or so he thinks he may have slipped a disk, He is not really sure. It knocked the wind out him and he had 2 weeks of excruciating pain. He couldnt sleep, it was unbearable. He was trying to lift his mom to crack her back and in that motion he hurt his own back. 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 Following lifiting his mom he went to the hospital where he was given vicadin at the ER and some Ibproufen. He has been taking it off and on. He has been trying to get out and walk about 10-15min a day . He does have posture issues and some neck pain. When he tries to mow the lawn he lasts about 30 min and then has to wait another day to do the other side. He gets an ache in LB after dishes and mowing lawn, it feels like hes being poked. It takes about 10-15min for it to go away. He has been sleeping in a recliner w/ pillow support or a couch until recently. He has been recently sleeping in a bed and that has been much better. He does get discomoft when he turns or twists to change positions; the motion causes a zap when sleeping in his LB . HE wants to get moving and wants to start feeling better. Treatment Goals Patient/Caregiver Goals sridevi is playing football and wants to be able to play w / him (13 yrs). not have to debate if he can worm picker things. mow the entire lawn. get healthy and stay healthy. PT-OP-C Subjective Start: 03/12/23 18:04 Freq: Status: Active Protocol: Document 05/13/23 11:43 [facility] (Rec: 05/13/23 12:18 [facility] [id number]) OP-PT Subjective Patient Comments Patient Comments Pt reports first thing in the AM, is when his TL junction area is there the worst. Pain in the day is just there but only if does something to tweak it does it get worse. Standing back up from bending over hurts. He tried to give mom a massage d/t pain and was sore after that. PT-OP-G Mobility & Gait Start: 03/12/23 18:04 Freq: Status: Active Protocol: Document 03/18/23 10:38 (Rec: 03/18/23 18:29 [id number]) OP Gait Assessment Comments Gait Comments dec toe off bilaterally. inc eversion bilatearlly when stepping. lateral trunk lean w / wt bearing bilaterally. compensated trendelenberg. no rotation of pelvis. hard Heel strike. PT-OP-J Posture/Palpation/Skin Start: 03/12/23 18:04 Freq: Status: Active Protocol: Document 03/18/23 10:38 (Rec: 03/18/23 13:34 [id number]) Posture Evaluation Arthur Postural Classification System Lumbar Protective Mechanism Left AP 1 Lumbar Protective Mechanism Right AP 2 Lumbar Protective Mechanism Left PA 1 Lumbar Protective Mechanism Right PA 2 Comments Posture Comments stiff. flat thoracic, kyphotic cervical, L shoulder is more elevated and anterior rotated than R. L pelvis sits higher than R, L trochanter sits slightly higher than R. PT-OP-K Range of Motion Start: 03/12/23 18:04 Freq: Status: Active Protocol: Document 03/18/23 10:38 (Rec: 03/18/23 13:34 [id number]) Cervical Spine Range of Motion Cervical Spine Active Testing Position Sitting ROM Limitations Pain Comments pain W/ all planes of movement and limitation w/ all. Lumbar Spine Range of Motion Lumbar Spine Active Testing Position Sitting ROM Limitations Pain Comments 25% rotation bilaterally. 25% L & R sidebend. when pelvis stablized 5% flexion . ext 5%. pain w/ all movements in LB region. PT-OP-M Strength Start: 03/12/23 18:04 Freq: Status: Active Protocol: Document 03/18/23 10:38 (Rec: 03/18/23 13:34 [id number]) Hip Strength Hip Manual Muscle Testing Left Flexion (L2) 4- Good- Extension (S1) 3 Fair Abduction 3+ Fair+ External Rotation 4- Good- Internal Rotation 3+ Fair+ Comments Int done in neutral, discomfort w/ pressure. Right Flexion (L2) 4- Good- Extension (S1) 3 Fair Abduction 3+ Fair+ External Rotation 4+ Good+ Internal Rotation 4- Good- Comments Int done in neutral, discomfort w/ pressure. Knee Strength Knee Manual Muscle Testing Left Flexion (S2) 4- Good- Extension (L3) 4- Good- Right Flexion (S2) 4- Good- Extension (L3) 4 Good Ankle/Foot Strength Ankle and Foot Manual Muscle Testing Left Dorsiflexion (L4) 5 Normal Right Dorsiflexion (L4) 5 Normal PT-OP-Q Treatments Start: 03/12/23 18:04 Freq: Status: Active Protocol: Document 05/13/23 11:43 [facility] (Rec: 05/13/23 12:18 [facility] [id number]) Therapeutic Exercises Supine Exercises bridge Side bilateral Reps/Minutes 5 sec x10 Standing Exercises squats Standing Exercise Name over chair Side bilateral Reps/Minutes 15 Comments cues for glute squeeze on way up hip hinge Side bilateral Equipment Used bar at back Reps/Minutes 15 sidesteps Side bilateral Equipment Used orange band Reps/Minutes 20ft ea Comments max cues for posture and no lat lean paloff press Side bilateral Equipment Used L3 bands Reps/Minutes 15 ea rows Side bilateral Reps/Minutes 2x12 Comments cues for posture and scap squeeze Manual Therapy Treatment Soft Tissue Mobilization back Body Location lumbar and thoracic R>L paraspinals & R QL Mobilization Type Rolling,Sustained Pressure Intensity/Depth Moderate Body Position Sidelying Comments w/gentle PROM pelvic patterns PT-OP-R Modalities Start: 03/12/23 18:04 Freq: Status: Active Protocol: Document 03/27/23 10:27 [facility] (Rec: 03/27/23 11:34 [facility] [id number]) Hot Pack/Cold Pack Treatment Cold Pack Location lumbar Patient Position Hooklying Treatment Duration (minutes) 10 Patient Tolerance Good Comments bolster under LEs PT-OP-T Assessment and Plan Start: 03/12/23 18:04 Freq: Status: Active Protocol: Document 05/13/23 11:43 [facility] (Rec: 05/13/23 12:18 [facility] [id number]) Physical Therapy Assessment Goals Movement Short Term Goal (STG) be able to go on his 15min walk w/ no decreased pain greater than 2/10 STG Duration 05/10/23 Bolt Cutter Goal (LTG) be able to play w/ his nephew w/out inc pain greater than 2/ 10 LTG Duration 06/10/23 strength Short Term Goal (STG) increase all MMT by one full grade to show improved strength in LEs. STG Duration 05/10/23 Bolt Cutter Goal (LTG) be able to lift 10# w/ proper mechanics and pain no greater than 2/10 so that pt can complete functional tasks w/ ease. LTG Duration 06/10/23 ROM Impairment thoracolumbar roation 25% bilaterally Short Term Goal (STG) increase thoracolumbar rotation to at least 50%(45deg ) bilaterally for improved functional ability Bolt Cutter Goal (LTG) Be able to turn his head bilaterally w/ pain no greater than 2/10 so that he can interact w/ his environment w/ ease such as driving. LTG Duration 06/10/23 Assessment Summary Assessment Pt was challenged by more difficult exercises performed today. He needs cues w/ standing exercises for his posture throughout. DOes note feeling good after manual treatment. Physical Therapy Plan Frequency and Duration Frequency of Treatment 2x/Week Duration of treatment (weeks) 12 Plan of Care Start Date 03/18/23 Plan of Care End Date 06/10/23 Next Visit Focus/Plan Next Note Type Treatment Note Next Visit Plan challenge balance, try shuttle balance and tball for core, advance standing,manaul to improve back pain (gentle d/t history of spinal fx)
--- NOTE | 2023-06-03 11:39 | PT-OP ANOTE ---
Pt's mom number (number pt has one acct) called and informed he will need a new referral to resume PT d/t no show. Mom said she forgot the appt and had an emergency. D/t no show and cancellation policy, DC pt d/t noncompliance.
--- NOTE | 2023-06-03 11:41 | PT.OPDS ---
Current Diagnoses Collapsed vertebra, not elsewhere classified, site unspecified, initial encounter for fracture (05/13/23) Cervicalgia (05/13/23) Low back pain, unspecified (05/13/23) Pain in thoracic spine (05/13/23) Difficulty in walking, not elsewhere classified (05/13/23) Abnormal posture (05/13/23) Weakness (05/13/23) Visit Care Team Role Provider Type Kenia Jiang DO Attending Provider Physician Family Provider Primary Care Provider Referring Provider Specialty: Medical Address: [address] [place] [address], [address], [place], [address] Email: [email or web address] Visit Number Visit Number 5 Discharge Summary PT-OP-B Current Condition Start: 03/12/23 18:04 Freq: Status: Active Protocol: Document 03/18/23 10:38 (Rec: 03/18/23 13:34 [id number]) Current Condition History of Current Condition History of Current Condition He broke his back about 10 yrs ago, slipped getting out of shower that resulted in a compression fx. He had back problems prior to the accident . He would try to work out when he felt better over the year but would then hurt himself. Then repeat the cycle over the years. So he gave up for a few years and did nothing. He got depressed trying to get moving again and has been in a hole of depression. About a month a go or so he thinks he may have slipped a disk, He is not really sure. It knocked the wind out him and he had 2 weeks of excruciating pain. He couldnt sleep, it was unbearable. He was trying to lift his mom to crack her back and in that motion he hurt his own back. 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 Following lifiting his mom he went to the hospital where he was given vicadin at the ER and some Ibproufen. He has been taking it off and on. He has been trying to get out and walk about 10-15min a day . He does have posture issues and some neck pain. When he tries to mow the lawn he lasts about 30 min and then has to wait another day to do the other side. He gets an ache in LB after dishes and mowing lawn, it feels like hes being poked. It takes about 10-15min for it to go away. He has been sleeping in a recliner w/ pillow support or a couch until recently. He has been recently sleeping in a bed and that has been much better. He does get discomoft when he turns or twists to change positions; the motion causes a zap when sleeping in his LB . HE wants to get moving and wants to start feeling better. Treatment Goals Patient/Caregiver Goals nephamelia is playing football and wants to be able to play w / him (11 yrs). not have to debate if he can cloth picker things. mow the entire lawn. get healthy and stay healthy. PT-OP-C Subjective Start: 03/12/23 18:04 Freq: Status: Active Protocol: Document 05/13/23 11:43 [facility] (Rec: 05/13/23 12:18 [facility] [id number]) OP-PT Subjective Patient Comments Patient Comments Pt reports first thing in the AM, is when his TL junction area is there the worst. Pain in the day is just there but only if does something to tweak it does it get worse. Standing back up from bending over hurts. He tried to give mom a massage d/t pain and was sore after that. PT-OP-G Mobility & Gait Start: 03/12/23 18:04 Freq: Status: Active Protocol: Document 03/18/23 10:38 (Rec: 03/18/23 18:29 [id number]) OP Gait Assessment Comments Gait Comments dec toe off bilaterally. inc eversion bilatearlly when stepping. lateral trunk lean w / wt bearing bilaterally. compensated trendelenberg. no rotation of pelvis. hard Heel strike. PT-OP-J Posture/Palpation/Skin Start: 03/12/23 18:04 Freq: Status: Active Protocol: Document 03/18/23 10:38 (Rec: 03/18/23 13:34 [id number]) Posture Evaluation Arthur Postural Classification System Lumbar Protective Mechanism Left AP 1 Lumbar Protective Mechanism Right AP 2 Lumbar Protective Mechanism Left PA 1 Lumbar Protective Mechanism Right PA 2 Comments Posture Comments stiff. flat thoracic, kyphotic cervical, L shoulder is more elevated and anterior rotated than R. L pelvis sits higher than R, L trochanter sits slightly higher than R. PT-OP-K Range of Motion Start: 03/12/23 18:04 Freq: Status: Active Protocol: Document 03/18/23 10:38 (Rec: 03/18/23 13:34 [id number]) Cervical Spine Range of Motion Cervical Spine Active Testing Position Sitting ROM Limitations Pain Comments pain W/ all planes of movement and limitation w/ all. Lumbar Spine Range of Motion Lumbar Spine Active Testing Position Sitting ROM Limitations Pain Comments 25% rotation bilaterally. 25% L & R sidebend. when pelvis stablized 5% flexion . ext 5%. pain w/ all movements in LB region. PT-OP-M Strength Start: 03/12/23 18:04 Freq: Status: Active Protocol: Document 03/18/23 10:38 (Rec: 03/18/23 13:34 [id number]) Hip Strength Hip Manual Muscle Testing Left Flexion (L2) 4- Good- Extension (S1) 3 Fair Abduction 3+ Fair+ External Rotation 4- Good- Internal Rotation 3+ Fair+ Comments Int done in neutral, discomfort w/ pressure. Right Flexion (L2) 4- Good- Extension (S1) 3 Fair Abduction 3+ Fair+ External Rotation 4+ Good+ Internal Rotation 4- Good- Comments Int done in neutral, discomfort w/ pressure. Knee Strength Knee Manual Muscle Testing Left Flexion (S2) 4- Good- Extension (L3) 4- Good- Right Flexion (S2) 4- Good- Extension (L3) 4 Good Ankle/Foot Strength Ankle and Foot Manual Muscle Testing Left Dorsiflexion (L4) 5 Normal Right Dorsiflexion (L4) 5 Normal PT-OP-T Assessment and Plan Start: 03/12/23 18:04 Freq: Status: Active Protocol: Document 06/03/23 11:40 [facility] (Rec: 06/03/23 11:41 [facility] [id number]) Physical Therapy Assessment Goals Movement Short Term Goal (STG) be able to go on his 15min walk w/ no decreased pain greater than 2/10 STG Duration 05/10/23 Circuit Breaker Mechanic Goal (LTG) be able to play w/ his nephew w/out inc pain greater than 2/ 10 LTG Duration 06/10/23 strength Short Term Goal (STG) increase all MMT by one full grade to show improved strength in LEs. STG Duration 05/10/23 Halfway Goal (LTG) be able to lift 10# w/ proper mechanics and pain no greater than 2/10 so that pt can complete functional tasks w/ ease. LTG Duration 06/10/23 ROM Impairment thoracolumbar roation 25% bilaterally Short Term Goal (STG) increase thoracolumbar rotation to at least 50%(45deg ) bilaterally for improved functional ability Circuit Breaker Mechanic Goal (LTG) Be able to turn his head bilaterally w/ pain no greater than 2/10 so that he can interact w/ his environment w/ ease such as driving. LTG Duration 06/10/23 Assessment Summary Assessment Pt's mom number (number pt has one acct) called and informed he will need a new referral to resume PT d/t no show. Mom said she forgot the appt and had an emergency. D/t no show and cancellation policy, DC pt d/t noncompliance. Limited progrss made as pt has attended only 5 appts including IE since March 18. He has reported improvement of symptoms w/sessions. He has been given HEP Physical Therapy Plan Discharge Physical Therapy Discharge Reasons No Longer Attending PT
== END 2023-06-08 15:12 | disposition home or self-care (01) ==
LOC: PHYS 11:30
PROVIDERS: Family Provider Family Medicine; PCP Family Medicine; Referring Provider Family Medicine; Visit Provider Family Medicine
DX: M48.50XA Collapsed vertebra, not elsewhere classified, site unspecified, initial encounter for fracture (principal); R53.1 Weakness; R26.2 Difficulty in walking, not elsewhere classified; R29.3 Abnormal posture; M54.2 Cervicalgia; M54.50 Low back pain, unspecified; M54.6 Pain in thoracic spine
CPT/HCPCS: 97110; 97140; 97162; 97535

== ENCOUNTER → 2023-06-15 14:34 | Outpatient (CLI) | payer OTHER, MEDICAID, SELFPAY ==
[2023-06-15 16:28] LABS: BUN Creatinine Ratio 10.4 (6-22); Blood Urea Nitrogen 8 mg/dL (9-20); Calcium 9.8 mg/dL (8.4-10.2); Carbon Dioxide 26 mmol/L (22-32); Chloride 106 mmol/L (98-107); Estimated Glomerular Filt Rate > 60 mL/min (>60); Glucose 89 mg/dL (70-100); HEMOLYSIS < 15 (0-50); Potassium 4.1 mmol/L (3.4-5.1); Sodium 140 mmol/L (137-145)
== END ==
PROVIDERS: Family Provider Family Medicine; PCP Family Medicine; Referring Provider Family Medicine; Visit Provider Family Medicine
DX: E78.5 Hyperlipidemia, unspecified (principal)
CPT/HCPCS: 36415; 80048

== ENCOUNTER → 2024-11-09 14:17 | Outpatient (CLI) | payer OTHER, SELFPAY ==
--- NOTE | 2024-11-09 14:19 | DI.US.S_ITS ---
PROCEDURE: US ABDOMEN LIMITED INDICATIONS: RLQ/Groin possible hernia TECHNIQUE: Real-time focused scanning was performed of the inguinal region, with image documentation. COMPARISON: None. FINDINGS: Reducible fat containing right inguinal hernia with neck measuring 1.1 x 0.9 centimeters. IMPRESSION: Reducible fat containing inguinal hernia. Dictated by: Chi De Dios M.D. on 11/09/2024 at 16:52 Approved by: Chi De Dios M.D. on 11/09/2024 at 16:53
== END ==
PROVIDERS: Family Provider Family Medicine; PCP Family Medicine; Referring Provider Family Medicine; Visit Provider Family Medicine
DX: K40.90 Unilateral inguinal hernia, without obstruction or gangrene, not specified as recurrent (principal)
CPT/HCPCS: 76705

== ENCOUNTER 2025-02-08 11:49 | Day surgery (SDC) | payer OTHER, SELFPAY ==
[2025-02-06 08:43] VITALS: BMI 29.5
[2025-02-08] VITALS (9 sets, daily range): BP systolic 137–174; BP diastolic 86–103; PULSE 86–110; RESP 11–16; TEMP 36.3–36.6; O2SAT 97–98; BMI 29.5
[2025-02-08] MEDS: ALBUTEROL/IPRATROPIUM 3 ML AMPUL INH (13:09)
[2025-02-08] MEDS: ONDANSETRON 4 MG/2 ML INJ IV (13:10)
[2025-02-08] MEDS: LACTATED RINGERS 1,000 ML 42 ML IV ×2 (13:15→14:58)
--- NOTE | 2025-02-08 13:40 | PM.PREOP ---
Pre-operative Note COVID-19 COVID-19 status: Not tested Interval Note History & Physical reviewed/Exam performed by Physician: Yes Changes to H&P: No ASA Class (for procedural sedation): II
[2025-02-08] MEDS: CEFAZOLIN 2 GM/100 ML PREMIX 100 ML IV (14:08)
--- NOTE | 2025-02-08 14:19 | SUR.OPER ---
Supine on padded OR bed with pink pads, head on pillow with supine face pad per anesthesia, torso safety strap in place, arms padded and tucked at sides, legs uncrossed, safety belt at thigh, tape over blanket over lower legs .
[2025-02-08] MEDS: BUPIVACAINE 0.5% (PF) 30 ML VIAL INJ (14:49)
--- NOTE | 2025-02-08 15:57 | PM.OP.1 ---
Operative Date/Time/Diagnoses Date of procedure: 02/08/25 Time of procedure: 15:57 Pre-op diagnosis: Right inguinal hernia Post-op diagnosis: other (Right direct inguinal hernia) Procedure & Clinicians Procedure: Robotic right inguinal hernia repair with mesh Same procedure as scheduled: Yes Surgeon: Pipe Cardona Wood Patternmaker: Roby Candelario Anesthesia Type: General Operative Notes Findings: Large direct right inguinal hernia, no obvious left inguinal hernia Applied: none Estimated Blood Loss (mL): 5 Procedure in detail: The patient was given preoperative antibiotics. The patient was brought to the operating room, placed on the table in the supine position with the arms tucked and general anesthesia was induced. The abdomen was prepped and draped in the usual fashion. A time-out was performed. A 1 cm transverse incision was created superior to the umbilicus and dissection was carried down to the fascia. The fascia was grasped with a Quynh clamp to elevate the abdominal wall. The fascia was scored transversely with cautery. A Peon clamp was used to mukherjee the peritoneum. The 12 mm robotic port was placed and the abdomen was insufflated to 15 mmHg. The camera was inserted, there was no evidence of any injury from the entry. There was a direct right inguinal hernia. 8 mm ports were placed under direct vision in the mid left and mid right abdomen. The patient was positioned in Trendelenburg. The robot was docked. We created right peritoneal flap. The peritoneum was dissected off the right cord structures and the pubis was exposed all the way to the midline. An extra-large standard weight right Bard mesh was brought in and placed over the defect with the medial edge overlapping the pubic symphysis. The mesh was secured with 2 interrupted 3-0 Vicryl sutures to Jamie's ligament. We then closed the peritoneal flap with a running 3-0 barbed suture. We took one last look around the abdomen and saw no other abnormalities. The suture was removed and accounted for. The robot was undocked. The 8 mm ports were removed under direct vision. The abdomen was desufflated. The 12 mm port was removed. Additional local was injected into the fascia and the fascial incision was closed with 2 interrupted 0 Vicryl sutures. The skin incisions were closed with 4 Monocryl, Steri-Strips and Band-Aids. Roby VALENCIA provided assistance with exposure, retraction and closure of incisions. Complications: none Post-operative Condition: stable Disposition: PACU
[2025-02-08] MEDS: MEPERIDINE 50 MG/ML INJ 25 MG IV (16:02)
[2025-02-08] MEDS: HYDROMORPHONE 1 MG INJ IV ×4 (16:02→16:17)
[2025-02-08] MEDS: OXYCODONE/ACETAMINOPHEN 5/325 TABLET 1 TAB PO (16:09)
[2025-02-08] MEDS: fentaNYL 100 MCG/2 ML INJ IV ×2 (16:30→16:35)
[2025-02-08] MEDS: METOCLOPRAMIDE 10 MG/2 ML INJ IV (16:32)
== END 2025-02-08 17:15 | disposition home or self-care (01) ==
PROVIDERS: Family Provider Family Medicine; PCP Family Medicine; Referring Provider Surgery; Visit Provider Surgery
PROC: 0YQ54ZZ Repair Right Inguinal Region, Percutaneous Endoscopic Approach (ICD-10-PCS; CPT 49650; principal; 2025-02-08 14:45)
DX: K40.90 Unilateral inguinal hernia, without obstruction or gangrene, not specified as recurrent (principal); F17.210 Nicotine dependence, cigarettes, uncomplicated
CPT/HCPCS: 49650; S2900; C1781; J0330; J0690; J1100; J1171; J2175; J2250; J2405; J2704; J2765; J3010

== ENCOUNTER → 2025-06-05 10:23 | Outpatient (CLI) | payer OTHER, SELFPAY ==
--- NOTE | 2025-06-05 10:23 | DI.US.S_ITS ---
PROCEDURE: US SCROTUM INDICATIONS: Right testicular pain TECHNIQUE: Real-time scanning was performed of the scrotum and testicles, with image documentation. Color and pulse Doppler interrogation was performed of both testicles. COMPARISON: None. FINDINGS: Right: Testicle is normal in size at 4.2 x 2.1 x 3.5 cm, and homogenous in echotexture. Epididymis is normal in overall size and morphology. 1.0 cm anechoic right epididymal cyst. No hydrocele or varicoceles. Overlying scrotal skin is normal in thickness. Left: Testicle is normal in size at 3.0 x 2.0 x 2.6 cm, and homogeneous in echotexture. Epididymis is normal in overall size and morphology. No hydrocele or varicoceles. Overlying scrotal skin is normal in thickness. Doppler: Color and pulse Doppler demonstrate normal and symmetric arterial flow in both testicles. IMPRESSION: No testicular mass or evidence of torsion. 1.0 cm right epididymal cyst. Otherwise, normal bilateral epididymis. No varicoceles or hydroceles. Dictated by: Vero Bray M.D. on 06/05/2025 at 17:46 Approved by: Vero Bray M.D. on 06/05/2025 at 17:49
== END ==
PROVIDERS: PCP Family Medicine; Referring Provider Surgery; Visit Provider Surgery
DX: N50.811 Right testicular pain (principal); N50.3 Cyst of epididymis
CPT/HCPCS: 76870

== ENCOUNTER → 2025-06-19 12:11 | Outpatient (CLI) | payer OTHER, SELFPAY ==
[2025-06-19 12:48] LABS: Estimated Glomerular Filt Rate > 60 mL/min (>60)
== END ==
PROVIDERS: PCP Family Medicine; Referring Provider Surgery; Visit Provider Surgery
DX: N50.811 Right testicular pain (principal)
CPT/HCPCS: 36415; 82565

== ENCOUNTER → 2025-06-19 13:52 | Outpatient (CLI) | payer OTHER, SELFPAY ==
--- NOTE | 2025-06-19 13:54 | DI.CT.S_ITS ---
PROCEDURE: CT ABDOMEN PELVIS W CON INDICATIONS: Abdominal pain TECHNIQUE: After the administration of intravenous contrast, axial sections acquired from the lung bases to the pubic symphysis. Coronal and sagittal reformats were performed. For radiation dose reduction, the following was used: automated exposure control, adjustment of mA and/or kV according to patient size. COMPARISON: None. FINDINGS: Image quality: Diagnostic. Lower Chest: No significant findings. ABDOMEN: Liver: No solid mass. Gallbladder: No radiopaque gallstones or wall thickening. Biliary ducts: No biliary dilation. Pancreas: No ductal dilation. Spleen: Size is within normal limits. Adrenal Glands: No adrenal nodules. Kidneys and Ureters: No hydronephrosis. No solid mass. No complex renal cystic lesion which requires follow up. Stomach and Bowel: Normal colonic caliber, without significant wall thickening. Normal caliber appendix Peritoneum: No abnormal intraperitoneal fluid. No free air. Ventral Wall: No significant ventral hernia. Abdominal Nodes: No retroperitoneal or mesenteric adenopathy by size criteria. Vessels: Aorta and inferior vena cava are normal in size. PELVIS: Pelvic Organs: Unremarkable. Bladder: No bladder wall thickening, accounting for underdistention. Pelvic Nodes: No enlarged lymph nodes. Miscellaneous: No inguinal hernias are seen. Bones: No aggressive osseous abnormality. IMPRESSION: No acute abdominopelvic process to explain patient's symptoms. Approved by: Brenda Bolanos M.D.,Ph.D. on 06/21/2025 at 0:04
== END ==
LOC: CT 13:53
PROVIDERS: PCP Family Medicine; Referring Provider Family Medicine; Visit Provider Surgery
DX: N50.811 Right testicular pain (principal); R10.31 Right lower quadrant pain; G89.18 Other acute postprocedural pain
CPT/HCPCS: 36415; 74177; 82565; Q9967